=== PATIENT | female | born 1945 | race Caucasian/White ===

== ENCOUNTER 2019-05-12 12:31 | Outpatient (CLI) | payer MEDICARE ==
--- NOTE | 2019-05-12 16:15 | MMO ---
Bilateral MAMMO Bilat Screen [facility]. CLINICAL HISTORY: Patient is 74 years old and is seen for screening. The patient has no family history of breast cancer. The patient has no personal history of cancer. VIEWS: The views performed were: bilateral craniocaudal with tomosynthesis and bilateral mediolateral oblique with tomosynthesis. FILMS COMPARED: The present examination has been compared to prior imaging studies performed at [facility] on 01/22/2016, and at [facility] on 01/12/2018. This study has been interpreted with the assistance of computer-aided detection. MAMMOGRAM FINDINGS: There are scattered fibroglandular densities. There are no suspicious masses, suspicious calcifications, or new areas of architectural distortion. IMPRESSION: THERE IS NO MAMMOGRAPHIC EVIDENCE OF MALIGNANCY. A ROUTINE FOLLOW-UP MAMMOGRAM IN 1 YEAR IS RECOMMENDED. THE RESULTS OF THIS EXAM WERE SENT TO THE PATIENT. ACR BI-RADS Category 1 - Negative MAMMOGRAPHY NOTE: 1. A negative mammogram report should not delay a biopsy if a dominant of clinically suspicious mass is present. 2. Approximately 10% to 15% of breast cancers are not detected by mammography. 3. Adenosis and dense breasts may obscure an underlying neoplasm. Reported by: KRISHNA SANDERSON MD Electonically Signed: [id number]
== END 2019-05-12 12:32 | disposition home or self-care (01) ==
LOC: BICMAMMO 12:31
PROVIDERS: ATTEND Family Medicine
DX: Z12.31 Encounter for screening mammogram for malignant neoplasm of breast (principal)
CPT/HCPCS: 77063; 77067

== ENCOUNTER 2020-05-29 09:39 | Outpatient (CLI) | payer MEDICARE ==
--- NOTE | 2020-05-29 10:50 | MMO ---
Bilateral MAMMO Bilat Screen [facility]. CLINICAL HISTORY: Patient is 75 years old and is seen for screening. The patient has no family history of breast cancer. The patient has no personal history of cancer. The patient has a history of left Excisional Biopsy - benign. VIEWS: The views performed were: bilateral craniocaudal with tomosynthesis and bilateral mediolateral oblique with tomosynthesis. FILMS COMPARED: The present examination has been compared to prior imaging studies performed at [facility] on 01/22/2016, and at [facility] on 01/12/2018 and 05/12/2019. This study has been interpreted with the assistance of computer-aided detection. MAMMOGRAM FINDINGS: There are scattered fibroglandular densities. There are benign appearing calcifications seen in both breasts. There are also vascular calcifications. There are no suspicious masses, suspicious calcifications, or new areas of architectural distortion. IMPRESSION: THERE IS NO MAMMOGRAPHIC EVIDENCE OF MALIGNANCY. A ROUTINE FOLLOW-UP MAMMOGRAM IN 1 YEAR IS RECOMMENDED. THE RESULTS OF THIS EXAM WERE SENT TO THE PATIENT. ACR BI-RADS Category 2 - Benign finding MAMMOGRAPHY NOTE: 1. A negative mammogram report should not delay a biopsy if a dominant of clinically suspicious mass is present. 2. Approximately 10% to 15% of breast cancers are not detected by mammography. 3. Adenosis and dense breasts may obscure an underlying neoplasm. Reported by: CHRISTOPHER ALTMAN MD Electonically Signed: [id number]
== END 2020-05-29 09:40 | disposition home or self-care (01) ==
LOC: BICMAMMO 09:39
PROVIDERS: ATTEND Family Medicine
DX: Z12.31 Encounter for screening mammogram for malignant neoplasm of breast (principal); Z91.89 Other specified personal risk factors, not elsewhere classified
CPT/HCPCS: 77063; 77067

== ENCOUNTER 2022-06-25 21:26 | Inpatient (IN) | payer MEDICARE ==
[2022-06-26] MEDS ORDERED: Ketamine 50 MG/ML (10ML VIAL) ONE (00:04)
[2022-06-26] MEDS ORDERED: Ipratropium/Albuterol 3 ML NEB NEB PRN (00:20)
[2022-06-26] MEDS ORDERED: Dextrose 5% in Water 1,000 ML IV PRN (00:20)
[2022-06-26] MEDS ORDERED: Dextrose 50% Abboject 50 ML SYRINGE SLOW IVP PRN (00:20)
[2022-06-26] MEDS ORDERED: Ondansetron PF 4 MG/2 ML Vial IVP PRN (00:20)
[2022-06-26] MEDS ORDERED: Morphine 2 MG/ML VIAL SLOW IVP PRN (00:20)
[2022-06-26] MEDS ORDERED: Ondansetron ODT 4 MG TAB PO PRN (00:20)
[2022-06-26] MEDS ORDERED: Morphine 4 MG/ML VIAL SLOW IVP PRN (00:20)
[2022-06-26] MEDS ORDERED: hydrALAZINE 20 MG/ML VIAL SLOW IVP PRN ×2 (00:20→00:26)
[2022-06-26] MEDS ORDERED: traMADol HCl 50 MG TAB PO PRN (00:26)
[2022-06-26] MEDS ORDERED: Cyclobenzaprine 10 MG TAB PO PRN (00:26)
[2022-06-26] MEDS ORDERED: Sodium Chloride 0.9% 1,000 ML IV SCH (00:30)
[2022-06-26] MEDS ORDERED: Acetaminophen 500 MG TAB PO SCH (00:30)
[2022-06-26] MEDS ORDERED: Gabapentin 100 MG CAP PO SCH ×2 (00:30→03:00)
[2022-06-26 01:08] LABS: #Lymphocytes 1.7 thou/uL (1.20-3.40); #Monocytes 0.8 thou/uL (0.11-0.59); #Neutrophils 10.9 thou/uL (1.40-6.50); %Basophils 0.4 % (0.0-1.0); %Eosinophils 0.4 % (0.0-10.0); %Lymphocytes 12.2 % (21.0-51.0); Hemoglobin 12.6 g/dL (12.0-16.0); Mean Corpuscular HGB CONC 34.5 g/dL (32.0-36.0); Mean Corpuscular Hemoglobin 30.6 pg (27.0-31.0); Mean Corpuscular Volume 88.7 fl (78.0-98.0); Mean Platelet Volume 7.2 fL (7.4-10.4); Platelet Count 261 10x3/uL (130-400); RBC Distribution Width 12.1 % (11.5-14.5); White Blood Cell (WBC) Count 13.5 10x3/uL (4.8-10.8)
[2022-06-26 01:30] LABS: ALT (SGPT) 17 U/L (8-55); AST (SGOT) 14 U/L (5-34); Albumin 3.9 g/dL (3.4-4.8); Alkaline Phosphatase 63 U/L (40-110); Anion Gap 15 mmol/L (10-20); BUN (Urea Nitrogen) 20 mg/dL (9.8-20.1); Bilirubin, Total 0.3 mg/dL (0.2-1.2); Calc. Creatinine Clearance 0 mL/min (70-130); Calcium 9.7 mg/dL (7.8-10.44); Carbon Dioxide 19 mmol/L (23-31); Chloride 104 mmol/L (98-107); Estimated GFR 78; Globulin 2.9 g/dL (2.4-3.5); Glucose 156 mg/dL (83-110); Magnesium 1.9 mg/dL (1.6-2.6); Phosphorus 2.5 mg/dL (2.3-4.7); Potassium 4.1 mmol/L (3.5-5.1); Protein, Total 6.8 g/dL (5.8-8.1); Sodium 134 mmol/L (136-145)
[2022-06-26] MEDS ORDERED: traMADol HCl 50 MG TAB ONE (02:46)
[2022-06-26] MEDS ORDERED: Acetaminophen 500 MG TAB ONE (02:46)
[2022-06-26 03:22] VITALS: BMI 33.9
[2022-06-26] MEDS ORDERED: traMADol HCl 50 MG TAB PO SCH (04:00)
[2022-06-26] MEDS ORDERED: Morphine 2 MG/ML VIAL ONE (08:03)
[2022-06-26] MEDS ORDERED: Famotidine 20 MG TAB ONE (08:11)
[2022-06-26] MEDS ORDERED: Famotidine 20 MG TAB PO SCH (09:00)
[2022-06-26] MEDS ORDERED: Polyethylene Glycol 3350 17 GM Packet PO SCH (09:00)
[2022-06-26] MEDS ORDERED: Senokot S 8.6-50 MG TAB PO SCH (09:00)
[2022-06-26 09:35] VITALS: TEMP 98.7
== END 2022-06-26 13:05 | disposition home or self-care (01) | DRG 563 ==
LOC: ERS 21:26 → ERHOLD 06-26 00:24
PROVIDERS: ADMIT Surgery; ATTEND Surgery
DX: S42.332A Displaced oblique fracture of shaft of humerus, left arm, initial encounter for closed fracture (principal); I10 Essential (primary) hypertension; E03.9 Hypothyroidism, unspecified; W18.30XA Fall on same level, unspecified, initial encounter; Z79.899 Other long term (current) drug therapy; Z79.890 Hormone replacement therapy; Z90.710 Acquired absence of both cervix and uterus; Z90.89 Acquired absence of other organs
CPT/HCPCS: 36415; 70450; 71045; 80053; 83735; 84100; 85025; 93005; G0390; J2272; J7050

== ENCOUNTER 2023-05-01 05:47 | Observation (INO) | payer MEDICARE ==
[2023-04-30 11:45] VITALS: BMI 30.7
[2023-05-01] MEDS ORDERED: fentaNYL 50 mcg/mL 1 mL Vial ONE ×3 (06:47→08:25)
[2023-05-01] MEDS ORDERED: Midazolam HCl 2 mg/2 ml Vial ONE (06:47)
[2023-05-01] MEDS ORDERED: Bupivacaine PF 0.5% 30 ML VIAL ONE ×2 (06:48→07:34)
[2023-05-01] MEDS ORDERED: Lidocaine 1% PF 5 ML VIAL ONE (07:00)
[2023-05-01] MEDS ORDERED: Ropivacaine 2% HCl/PF (20 MG/10 ML VIAL) ONE (07:00)
[2023-05-01] MEDS ORDERED: PROPOFOL 200 MG/20 ML VIAL ONE (07:00)
[2023-05-01] MEDS ORDERED: PHENYLEPHRINE-NS 100 MCG/ML 10 ML SYRINGE ONE ×2 (07:00→07:31)
[2023-05-01] MEDS ORDERED: Dexamethasone 20 MG/5 ML VIAL ONE (07:00)
[2023-05-01] MEDS ORDERED: Ropivacaine 0.5% HCl/PF (150 MG/30 ML VIAL) ONE (07:00)
[2023-05-01] MEDS ORDERED: Ondansetron PF 4 MG/2 ML Vial ONE ×2 (07:00→07:31)
[2023-05-01] MEDS ORDERED: Ketorolac Tromethamine 30 MG (1 mL) VIAL ONE (07:00)
[2023-05-01] MEDS ORDERED: Acetaminophen 500 MG TAB ONE (07:24)
[2023-05-01] MEDS ORDERED: CEFAZOLIN 2 GM VIAL ONE (07:28)
[2023-05-01] MEDS ORDERED: Sodium Chloride 0.9% 100 ML ONE (07:28)
[2023-05-01] MEDS ORDERED: Lidocaine 2% PF 5 ML VIAL ONE ×2 (07:31→08:14)
[2023-05-01] MEDS ORDERED: Dexamethasone 4 mg/ml Vial ONE (07:31)
[2023-05-01] MEDS ORDERED: PROPOFOL 20 ML ONE ×3 (07:32→08:13)
[2023-05-01] MEDS ORDERED: EPINEPHrine 1 MG/ML VIAL ONE (07:33)
[2023-05-01] MEDS ORDERED: Vancomycin 1 GM VIAL ONE (09:46)
[2023-05-01] MEDS ORDERED: Ondansetron HCl/PF 4 MG/2 ML Vial IVP PRN (10:00)
[2023-05-01] MEDS ORDERED: HYDROmorphone 2 MG/ML VIAL SLOW IVP PRN (10:00)
[2023-05-01] MEDS ORDERED: traMADol HCl 50 MG TAB PO PRN ×2 (10:16→12:00)
[2023-05-01] MEDS ORDERED: fentaNYL 50 mcg/mL 1 mL Vial SLOW IVP PRN ×2 (10:16→12:00)
[2023-05-01] MEDS ORDERED: HYDROcodone/Acetaminophen 5/325 mg Tablet PO PRN ×2 (10:16→12:00)
[2023-05-01] MEDS ORDERED: Ondansetron PF 4 MG/2 ML Vial SLOW IVP PRN (10:16)
[2023-05-01] MEDS ORDERED: fentaNYL PF 100 MCG/2 ML SYRINGE ONE ×3 (10:21→11:17)
[2023-05-01] MEDS ORDERED: Communication Order-Pharmacy FS SCH (10:30)
[2023-05-01] MEDS ORDERED: HYDROmorphone 0.5 MG/0.5 ML SYRINGE ONE ×2 (10:43→11:17)
[2023-05-01] MEDS ORDERED: Zolpidem Tartrate 5 MG TAB PO PRN (12:00)
[2023-05-01] MEDS ORDERED: Promethazine HCl 25 MG/ML VIAL IM PRN (12:00)
[2023-05-01] MEDS ORDERED: Ropivacaine 0.2% 550 ML 550 ML NERVE BLCK SCH (12:00)
[2023-05-01] MEDS ORDERED: CEFAZOLIN 2 GM in Sodium Chloride 0.9% 100 ML IVPB SCH (14:00)
[2023-05-01] MEDS: Ketorolac Tromethamine 30 MG (1 mL) VIAL IVP SCH ×3 (15:20→22:33)
[2023-05-01] MEDS ORDERED: FLU VACC QS2023(65UP)/MF59C/PF 60 MCG/0.5 ML SYRINGE IM ONE (16:15)
[2023-05-01] MEDS: CEFAZOLIN 2 GM in Sodium Chloride 0.9% 100 ML IVPB SCH (16:44)
[2023-05-02] MEDS: CEFAZOLIN 2 GM in Sodium Chloride 0.9% 100 ML IVPB SCH (00:20)
[2023-05-02] MEDS: Ketorolac Tromethamine 30 MG (1 mL) VIAL IVP SCH (04:31)
[2023-05-02 05:23] LABS: #Monocytes 0.6 thou/uL (0.11-0.59); #Neutrophils 3.1 thou/uL (1.40-6.50); %Basophils 0.2 % (0.0-1.0); %Eosinophils 0.6 % (0.0-10.0); %Lymphocytes 28.2 % (21.0-51.0); %Monocytes 10.5 % (0.0-10.0); %Neutrophils 59.9 % (42.0-75.0); Hematocrit 23.3 % (36.0-47.0); Hemoglobin 7.6 g/dL (12.0-16.0); Mean Corpuscular HGB CONC 32.6 g/dL (32.0-36.0); Mean Corpuscular Hemoglobin 30.3 pg (27.0-31.0); Mean Corpuscular Volume 92.8 fl (78.0-98.0); Mean Platelet Volume 9.6 fL (7.4-10.4); Platelet Count 211 10x3/uL (130-400); RBC Distribution Width 13.3 % (11.5-14.5); Red Blood Cell (RBC) Count 2.51 mill/uL (4.20-5.40); White Blood Cell (WBC) Count 5.2 10x3/uL (4.8-10.8)
[2023-05-02 08:29] VITALS: BP 115/70
[2023-05-02] MEDS ORDERED: Lisinopril 20 MG TAB PO SCH (09:00)
[2023-05-02] MEDS ORDERED: Non-Formulary Item 1 EACH (Lisinopril/Hydrochlorothiazide [Lisinopril-Hctz 20-12.5 Mg Tab PO SCH (09:00)
[2023-05-02] MEDS ORDERED: Hydrochlorothiazide 25 MG TAB PO SCH (09:00)
[2023-05-02] MEDS ORDERED: Levothyroxine 175 MCG TAB PO SCH (09:00)
[2023-05-02 11:49] VITALS: TEMP 98.1
== END 2023-05-02 11:50 | disposition home or self-care (01) ==
LOC: SDC 05:47 → SURG A 10:20
PROVIDERS: ADMIT Orthopaedic Surgery; ATTEND Orthopaedic Surgery
PROC: 0PSG06Z Reposition Left Humeral Shaft with Intramedullary Internal Fixation Device, Open Approach (ICD-10-PCS; principal; 2023-05-01)
DX: S42.302D Unspecified fracture of shaft of humerus, left arm, subsequent encounter for fracture with routine healing (principal); G89.29 Other chronic pain; Z90.710 Acquired absence of both cervix and uterus; Z79.899 Other long term (current) drug therapy; X58.XXXD Exposure to other specified factors, subsequent encounter
CPT/HCPCS: 24516; 73060; 85025; 93005; A4306; C1713 ×12; J0171; J3010; 36415; 93010; J1100; J1170; J1885; J2001; J2250; J2405; J2704; J2795; J3370; J3490; S0020